=== PATIENT | male | born 1975 | race African-American/Black ===

== ENCOUNTER 2017-05-04 09:44 | Outpatient (CLI) | payer BC, OTHER ==
[2017-05-04 12:33] LABS: #Basophils 0.1 thou/uL (0.0-0.2); #Eosinphils 0.3 thou/uL (0.0-0.7); #Lymphocytes 1.9 thou/uL (1.20-3.40); #Monocytes 0.7 thou/uL (0.11-0.59); #Neutrophils 2.4 thou/uL (1.40-6.50); %Basophils 2.2 % (0.0-1.0); %Eosinophils 4.6 % (0.0-10.0); %Lymphocytes 35.3 % (21.0-51.0); %Monocytes 13.4 % (0.0-10.0); %Neutrophils 44.5 % (42.0-75.0); Hemoglobin 14.4 g/dL (14.0-18.0); Mean Corpuscular HGB CONC 32.4 g/dL (32.0-36.0); Mean Corpuscular Hemoglobin 30.2 pg (27.0-31.0); Mean Platelet Volume 6.1 fL (7.4-10.4); Platelet Count 312 thou/uL (130-400); RBC Distribution Width 12.7 % (11.5-14.5); Red Blood Cell (RBC) Count 4.77 mill/uL (4.70-6.10); White Blood Cell (WBC) Count 5.5 thou/uL (4.8-10.8)
[2017-05-04 12:50] LABS: Bilirubin Negative (Negative); Blood, Urine Negative (Negative); Clarity Clear (Clear); Glucose, Urine (Dipstick) Negative (Negative); Leukocyte Negative (Negative); Nitrite Negative (Negative); Protein, Urine (Dipstick) Negative (Neg-Trace); Urobilinogen 0.2 mg/dL (0.2-1.0); pH, Urine 5.5 (5.0-9.0)
[2017-05-04 13:17] LABS: ALT (SGPT) 25 U/L (8-55); AST (SGOT) 19 U/L (5-34); Albumin 4.1 g/dL (3.5-5.0); Alkaline Phosphatase 36 U/L (40-150); Anion Gap 16 mmol/L (10-20); BUN (Urea Nitrogen) 11 mg/dL (8.9-20.6); Bilirubin, Total 0.4 mg/dL (0.2-1.2); Calc. Creatinine Clearance 0 mL/min (70-130); Calcium 9.6 mg/dL (7.8-10.44); Carbon Dioxide 25 mmol/L (22-29); Cardiac Risk 3.3 (Less than 4.5); Chloride 104 mmol/L (98-107); Cholesterol 154 mg/dl (< 200 Desired); Estimated GFR-MDRD Greater than 90; Globulin 2.7 g/dL (2.4-3.5); Glucose 88 mg/dL (70-105); HDL Cholesterol 47 mg/dL (>60 Neg Risk); LDL Cholesterol, Calculated 92 mg/dL; Potassium 4.6 mmol/L (3.5-5.1); Protein, Total 6.8 g/dL (6.0-8.3); Sodium 140 mmol/L (136-145); Triglycerides 77 mg/dL (Less than 150)
== END 2017-05-04 09:45 | disposition home or self-care (01) ==
LOC: NAVSJIPCSP 09:44
PROVIDERS: ATTEND Internal Medicine
DX: I10 Essential (primary) hypertension (principal); Z79.899 Other long term (current) drug therapy
CPT/HCPCS: 36415; 80053; 80061; 81003; 83036; 84443; 85025

== ENCOUNTER 2022-03-23 11:51 | Emergency (ER) | payer OTHER ==
[2022-03-23 13:25] LABS: #Basophils 0.1 thou/uL (0.0-0.2); #Eosinphils 0.4 thou/uL (0.0-0.7); #Lymphocytes 2.1 thou/uL (1.20-3.40); #Monocytes 0.8 thou/uL (0.11-0.59); #Neutrophils 2.2 thou/uL (1.40-6.50); %Basophils 2.6 % (0.0-1.0); %Eosinophils 6.8 % (0.0-10.0); %Lymphocytes 36.3 % (21.0-51.0); %Monocytes 14.5 % (0.0-10.0); %Neutrophils 39.7 % (42.0-75.0); Hemoglobin 15.3 g/dL (14.0-18.0); Mean Corpuscular HGB CONC 30.5 g/dL (32.0-36.0); Mean Corpuscular Hemoglobin 29.4 pg (27.0-31.0); Mean Corpuscular Volume 96.4 fL (78.0-98.0); Mean Platelet Volume 7.7 fL (7.4-10.4); Platelet Count 351 thou/uL (130-400); RBC Distribution Width 12.9 % (11.5-14.5); Red Blood Cell (RBC) Count 5.23 mill/uL (4.70-6.10); White Blood Cell (WBC) Count 5.7 thou/uL (4.8-10.8)
[2022-03-23 13:34] LABS: Bilirubin Negative (Negative); Blood, Urine Negative (Negative); Clarity Clear (Clear); Glucose, Urine (Dipstick) Negative (Negative); Ketone, Urine Negative (Negative); Leukocyte Negative (Negative); Nitrite Negative (Negative); Protein, Urine (Dipstick) Negative (Neg-Trace); Urobilinogen 0.2 mg/dL (Less than 2)
[2022-03-23 13:35] LABS: ALT (SGPT) 48 U/L (8-55); AST (SGOT) 49 U/L (5-34); Albumin 4.4 g/dL (3.5-5.0); Alkaline Phosphatase 41 U/L (40-110); Anion Gap 17 mmol/L (10-20); BUN (Urea Nitrogen) 12 mg/dL (8.9-20.6); Bilirubin, Total 0.6 mg/dL (0.2-1.2); CK (CPK) 902 U/L (30-200); Calc. Creatinine Clearance 0 mL/min (70-130); Calcium 10.2 mg/dL (7.8-10.44); Carbon Dioxide 24 mmol/L (22-29); Chloride 99 mmol/L (98-107); Estimated GFR 110; Globulin 3.1 g/dL (2.4-3.5); Glucose 108 mg/dL (70-105); Potassium 4.2 mmol/L (3.5-5.1); Protein, Total 7.5 g/dL (6.0-8.3); Sodium 136 mmol/L (136-145)
[2022-03-23 13:40] LABS: Amphetamine Not Detected (NotDetected); Barbiturates Screen Not Detected (NotDetected); Benzodiazepine Screen Not Detected (NotDetected); Cocaine Metabolite Screen Not Detected (NotDetected); Medtox Control Line Valid? VALID (VALID); Methadone Not Detected (NotDetected); Methamphetamine Not Detected (NotDetected); Opiate Screen Not Detected (NotDetected); Oxycodone Screen Not Detected (NotDetected); Phencyclidine (PCP) Not Detected (NotDetected); THC/Cannabinoid Screen Not Detected (NotDetected); Tricyclic Screen Not Detected (NotDetected)
[2022-03-23] MEDS ORDERED: Sodium Chloride 0.9% 100 ML ONE (13:42)
[2022-03-23] MEDS ORDERED: Thiamine HCl 200 MG/2 ML VIAL ONE (13:42)
[2022-03-23] MEDS ORDERED: Multivit, Adult Inj 10 ML VIAL ONE (14:24)
[2022-03-23 15:41] LABS: SARS-CoV-2 NAA Rapid Test Not Detected (NotDetected)
== END 2022-03-23 18:06 | disposition short-term general hospital (02) ==
LOC: NAV ERS 11:51
DX: R26.0 Ataxic gait (principal); R53.1 Weakness; R79.89 Other specified abnormal findings of blood chemistry; Z20.822 Contact with and (suspected) exposure to COVID-19; I10 Essential (primary) hypertension; F17.220 Nicotine dependence, chewing tobacco, uncomplicated; Z79.899 Other long term (current) drug therapy
CPT/HCPCS: 70450; 80053; 80306; 81003; 82550; 85025; 85379; 96365; 96366; 96367; J3411; U0002